=== PATIENT | male | born 1975 | race Caucasian/White ===

== ENCOUNTER 2018-04-13 09:07 | Emergency (ER) | payer BC ==
[2018-04-13 09:12] VITALS: BP 118/75; PULSE 70; RESP 20; TEMP 97.7
[2018-04-13] MEDS ORDERED: CLINDAMYCIN 150 MG/ML 6 ML VIAL IM STA (09:48)
--- NOTE | 2018-04-13 09:54 | ED ---
Extremity Problem HPI - General Chief complaint: Extremity Problem,Nontraumatic Stated complaint: Infection in elbow Time Seen by Provider: 04/13/18 09:14 Source: patient, RN notes reviewed, old records reviewed Mode of arrival: ambulatory Limitations: no limitations - History of Present Illness Initial comments: Patient is a 42-year-old male presents emergency Department with left elbow redness pain and swelling. Patient reports that it started on Monday. He reports that he has full range of motion of the elbow. He reports that today he noticed some skin changes and worsening erythema. Has had a history of MRSA. He is ALLERGIC to Keflex and Bactrim. Was sent here by [facility] because he cannot receive the IM injections of clindamycin there. He reports the clindamycin is only antibiotic that works well for him.. No fevers or chills. Again he reports full range of motion of the elbow and upper extremity. He's never seen an orthopedic physician. - Related Data Previous Rx's Medication Instructions Recorded Clindamycin [Cleocin] 450 mg PO Q6H 10 Days 04/13/18 Ibuprofen [Motrin] 600 mg PO Q8HR PRN #20 tab 04/13/18 methylPREDNISolone Dose Pack 4 mg PO DIRECTED #21 package 04/13/18 [Medrol Dose Pack] Allergies Allergy/AdvReac Type Severity Reaction Status Date / Time cephalexin [From Keflex] Allergy Unknown Verified 04/13/18 09:12 sulfamethoxazole Allergy Unknown Verified 04/13/18 09:12 [From Bactrim] trimethoprim [From Bactrim] Allergy Unknown Verified 04/13/18 09:12 Review of Systems ROS Statement: Those systems with pertinent positive or pertinent negative responses have been documented in the HPI. ROS Other: All systems not noted in ROS Statement are negative. Past Medical History Past Medical History: Hypertension History of Any Multi-Drug Resistant Organisms: None Reported Past Psychological History: No Psychological Hx Reported Smoking Status: Never smoker Past Alcohol Use History: Daily Past Drug Use History: None Reported General Exam - General Exam Comments Initial Comments: This is a 42-year-old male. Alert and oriented. No significant distress. Limitations: no limitations General appearance: alert, in no apparent distress Head exam: Present: atraumatic, normocephalic, normal inspection Eye exam: Present: normal appearance, PERRL, EOMI. Absent: scleral icterus, conjunctival injection, periorbital swelling ENT exam: Present: normal exam, mucous membranes moist Neck exam: Present: normal inspection. Absent: tenderness, meningismus, lymphadenopathy Respiratory exam: Present: normal lung sounds bilaterally. Absent: respiratory distress, wheezes, rales, rhonchi, stridor Cardiovascular Exam: Present: regular rate, normal rhythm, normal heart sounds. Absent: systolic murmur, diastolic murmur, rubs, gallop, clicks GI/Abdominal exam: Present: soft, normal bowel sounds. Absent: distended, tenderness, guarding, rebound, rigid Left Upper Arm exam: Present: normal inspection, full ROM Elbow exam: Present: full ROM, swelling (Patient has evidence of olecranon bursitis with erythema and surrounding erythema over the elbow measuring approximately 8-10 cm wide.), erythema, effusion. Absent: normal inspection, laceration, ecchymosis, deformity, pain w/ pronation/supination, tenderness over radial head, other Forearm Wrist exam: Present: normal inspection, full ROM, other (Evidence of eczema over the distal forearm.) Hand Wrist exam: Present: normal inspection, full ROM Vascular: Present: normal capillary refill Back exam: Present: normal inspection Neurological exam: Present: alert, oriented X3, CN II-XII intact Psychiatric exam: Present: normal affect, normal mood Skin exam: Present: warm, dry, intact, normal color. Absent: rash Course Vital Signs 04/13/18 09:10 Temperature 97.7 F Pulse Rate 70 Respiratory 20 Rate Blood Pressure 118/75 O2 Sat by Pulse 99 Oximetry - Reevaluation(s) Reevaluation #1: 04/13/18 09:46 I discussed doing an IV and possibility of needing an aspiration of the joint. Patient is refusing. He states he just wants the IM injections and wants to go home. We'll give him IM clindamycin and send him home with prescription. Discussed appropriate follow-up with orthopedic. Medical Decision Making - Medical Decision Making 42-year-old male present emergency department with left elbow pain and swelling. [facility] for IM injections of clindamycin as they did not have any. Patient has evidence of what appears to be a possibility of a septic bursitis. I offered the Patient IV fluids and orthopedic consult for drainage. He states he does not want to do this time. Only one time injections and medications and to leave. He's had this happen multiple times in the past over his ankle and foot, and believes he will heal well with clindamycin. He has full range of motion of the elbow and wrist and hand. He is alert and had x- [facility] today at [facility] and was told that they are normal. They discussed that I will give the Patient IM clindamycin. We'll discharge him with follow-up with orthopedic. I discussed strict return parameters. All questions answered return parameters were discussed. 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 If the area of redness or swelling worsens he needs return for further evaluation and possibility of IV antibiotics. Take medications as prescribed. Return to the emergency department if any alarming signs or symptoms occur. Prescriptions: Clindamycin [Cleocin] 450 mg PO Q6H 10 Days Ibuprofen [Motrin] 600 mg PO Q8HR PRN #20 tab PRN Reason: Pain methylPREDNISolone Dose Pack [Medrol Dose Pack] 4 mg PO DIRECTED #21 package Is patient prescribed a controlled substance at d/c from ED?: No When asked, does pt state using other controlled substances?: No If prescribed controlled substance>3 days was MAPS reviewed?: No If opioid is for acute pain is fill amount 7 days or less?: No If Rx opioid, was Start Talking consent form obtained?: No Referrals: Brady Riley MD [Primary Care Provider] - 1-2 days Marko Kendrick PAC [PHYSICIAN [facility]] - 1-2 days Time of Disposition: 09:50
== END 2018-04-13 10:53 | disposition home or self-care (01) ==
LOC: EC 09:07
DX: M70.22 Olecranon bursitis, left elbow (principal); L03.114 Cellulitis of left upper limb; Z88.1 Allergy status to other antibiotic agents; Z88.2 Allergy status to sulfonamides
CPT/HCPCS: 96372; 99283

== ENCOUNTER → 2018-08-15 | Outpatient (CLI) | payer BC ==
--- NOTE | 2018-08-15 11:03 | US ---
EXAMINATION TYPE: US venous doppler duplex LE LT DATE OF EXAM: 08/15/2018 10:45 AM COMPARISON: NONE CLINICAL HISTORY: M79.605 PAIN IN LT LEG. Left lower leg pain and edema SIDE PERFORMED: left TECHNIQUE: The lower extremity deep venous system is examined utilizing real time linear array sonog dexter with graded compression, doppler sonography and color-flow sonography. VESSELS IMAGED: External Iliac Vein (EIV) Common Femoral Vein Deep Femoral Vein Greater Saphenous Vein * Femoral Vein Popliteal Vein Small Saphenous Vein * Proximal Calf Veins (* superficial vessels) There is normal flow, compressibility, vascular waveforms. Left Leg: No evidence of DVT IMPRESSION: No evident deep venous arthrosis at or above the left knee, follow-up as indicated
[2018-08-15 11:41] LABS: Basophils % (A) 0 %; Eosinophils # (A) 0.3 k/uL (0-0.7); Eosinophils % (A) 4 %; HCT 47.2 % (39.0-53.0); HGB 15.4 gm/dL (13.0-17.5); Lymphocytes # (A) 1.4 k/uL (1.0-4.8); Lymphocytes % (A) 16 %; MCH 28.1 pg (25.0-35.0); MCHC 32.6 g/dL (31.0-37.0); MCV 86.2 fL (80.0-100.0); Mean Platelet Volume 7.7; Monocytes # (A) 0.7 k/uL (0-1.0); Monocytes % (A) 8 %; Neutrophils # (A) 6.1 k/uL (1.3-7.7); Neutrophils % (A) 71 %; Platelet Count 275 k/uL (150-450); RBC 5.48 m/uL (4.30-5.90); RDW 12.5 % (11.5-15.5); WBC 8.5 k/uL (3.8-10.6)
[2018-08-15 11:42] LABS: ALT 46 U/L (21-72); AST 38 U/L (17-59); Albumin 4.3 g/dL (3.5-5.0); Alkaline Phosphatase 61 U/L (38-126); Anion Gap 10 mmol/L; Blood Urea Nitrogen 14 mg/dL (9-20); Calcium 9.9 mg/dL (8.4-10.2); Carbon Dioxide 25 mmol/L (22-30); Chloride 105 mmol/L (98-107); Glucose 97 mg/dL (74-99); Potassium 5.3 mmol/L (3.5-5.1); Sodium 140 mmol/L (137-145); Total Protein 7.6 g/dL (6.3-8.2)
== END | disposition home or self-care (01) ==
LOC: RADUSWWP 10:03
PROVIDERS: ATTEND Family Medicine
DX: M79.605 Pain in left leg (principal); M25.50 Pain in unspecified joint; M25.472 Effusion, left ankle
CPT/HCPCS: 36415; 80053; 84550; 85025

== ENCOUNTER → 2019-08-20 | Outpatient (CLI) | payer BC ==
[2019-08-20 13:08] LABS: Basophils # (A) 0.1 k/uL (0-0.2); Basophils % (A) 1 %; Eosinophils # (A) 0.3 k/uL (0-0.7); Eosinophils % (A) 3 %; HCT 43.3 % (39.0-53.0); HGB 14.8 gm/dL (13.0-17.5); Lymphocytes # (A) 1.3 k/uL (1.0-4.8); Lymphocytes % (A) 12 %; MCH 29.3 pg (25.0-35.0); MCHC 34.3 g/dL (31.0-37.0); MCV 85.6 fL (80.0-100.0); Mean Platelet Volume 6.9; Monocytes % (A) 9 %; Neutrophils # (A) 8.3 k/uL (1.3-7.7); Neutrophils % (A) 74 %; Platelet Count 289 k/uL (150-450); RBC 5.06 m/uL (4.30-5.90); RDW 13.1 % (11.5-15.5); WBC 11.2 k/uL (3.8-10.6)
[2019-08-20 15:26] LABS: Appearance,BF Cloudy; Color,BF Yellow
[2019-08-20 16:03] LABS: Nucleated Cells, Body Fluid 62400 /uL; RBC, Body Fluid 400 /uL
[2019-08-20 16:05] LABS: Mononuclear WBC,Body Fluid 13 %; Polynuclear WBC,Body Fluid 87 %; Total Cells Counted,Body Fluid 100
[2019-08-20 20:02] LABS: C Reactive Protein 10.8 mg/dL (0.0-0.8); Uric Acid 8.5 mg/dL (3.7-8.7)
== END | disposition home or self-care (01) ==
LOC: LABWHC1 11:54
PROVIDERS: ATTEND Orthopaedic Surgery
DX: M25.562 Pain in left knee (principal); M25.462 Effusion, left knee
CPT/HCPCS: 36415; 84550; 85025; 86140; 87070; 87075; 87205; 89050; 89060

== ENCOUNTER 2019-08-23 12:20 | Day surgery (SDC) | payer BC ==
[2019-08-23 12:57] VITALS: RESP 16
[2019-08-23] MEDS ORDERED: LACTATED RINGERS 1,000 ML IV ONE ×3 (13:00→14:42)
[2019-08-23] MEDS: LIDOCAINE 1% 20 ML VIAL (10MG/ML) FOR IV START INTRADERMA ONE ×2 (13:01→13:44)
[2019-08-23 13:11] VITALS: BMI 27.4
[2019-08-23] MEDS ORDERED: ATENOLOL 50 MG TAB PO STA (13:21)
[2019-08-23] MEDS ORDERED: ONDANSETRON 4 MG/2 ML VIAL IVP ONE (13:35)
[2019-08-23] MEDS ORDERED: DEXAMETHASONE SOD PHOSPHATE 10 MG/ML 1 ML VIAL IV ONE (13:37)
[2019-08-23] MEDS ORDERED: MIDAZOLAM 2 MG/2 ML VIAL ONE (13:56)
[2019-08-23] MEDS ORDERED: KETOROLAC 30 MG/ML 1 ML VIAL ONE (13:56)
[2019-08-23] MEDS ORDERED: HYDROmorphone (PF) 1 MG/ML ONE (13:56)
[2019-08-23] MEDS ORDERED: LIDOCAINE 1% INJ 10MG/ML (20 ML MDV) ONE (13:56)
[2019-08-23] MEDS ORDERED: fentaNYL (PF) 50 MCG/ML 2 ML AMP ONE (13:56)
[2019-08-23] MEDS ORDERED: PROPOFOL 10 MG/ML 20 ML VIAL IV ONE (13:56)
[2019-08-23 15:30] VITALS: TEMP 97
--- NOTE | 2019-08-23 15:33 | P.OP ---
Date of Procedure: 08/23/19 Preoperative Diagnosis: Left knee acute crystalline arthropathy (acute gouty attack) Postoperative Diagnosis: Same Procedure(s) Performed: Left knee arthroscopic irrigation and debridement and extensive synovectomy Anesthesia: GIANLUCA Surgeon: Kee Cherry Director [employer]: Nikki Murphy Estimated Blood Loss (ml): 10 IV fluids (ml): 1,000 Pathology: other (Deep cultures were sent to [facility]) Condition: stable Disposition: PACU Indications for Procedure: The patient is a very pleasant previously healthy 43-year-old male who presented to my office this past Monday with an acute effusion to the left knee. He was previously seen by Dr. Shah who started him on indomethacin for presumptive gout. His knee was aspirated in my office and over 150 mL's of cloudy yellow fluid was drained. The fluid was sent for cultures, cell count, and crystal analysis. The crystal analysis came back consistent with gout and the white count was 65,000. We discussed the outcome of these studies and treatment options. He developed a recurrent effusion over the next 24 hours. He was seen in my office this morning with a large him a painful effusion. We discussed continued medical management and serial aspirations versus arthroscopic irrigation and debridement. The patient requested an arthroscopic irrigation and debridement of his knee. According to the patient's mom he has had multiple flareups and different joints in the past all consistent with gout. I long discussion with the patient on potential risks and complications of surgery including but not limited to risks from anesthesia, superficial infection, deep infection, damaged intra-articular structures, damage to local blood vessels or nerves, recurrence, worsening of his symptoms, need for further surgery, continued or worsened knee pain, and inability to regain preinjury level of function, and possibly loss of life or limb. The patient voiced his understanding of this and provided his verbal and written consent to go forward with surgery. Operative Findings: There was a large effusion immediately drained upon inserting the arthroscope into the anterolateral portal. The outflow from the knee was thick, cloudy yellow fluid. This fluid was swabbed and sent for cultures. There is diffuse inflamed synovium with a yellowish tint consistent with chronic gouty changes. There were also multiple white precipitate within the knee consistent with chronic gout. Description of Procedure: The patient is identified in preop holding and the correct left knee was marked with my initials. I reviewed the consent form with the patient and his mom. All her questions were answered. The patient was then brought back to the operating room by anesthesia. He was positioned on the OR table where general anesthetic and preoperative antibiotics were given. A tourniquet was applied proximal aspect of the left leg. A leg zheng was placed securing the left thigh to the table. A pillow was placed under the right leg. The foot of the bed was dropped. The left leg was then prepped and draped in the standard sterile fashion. Prior to starting surgery timeout was performed identifying the correct patient, operative extremity, and procedure. The patient's leg was then elevated, exsanguinated with an Esmarch bandage, and the tourniquet was inflated to 250 mmHg. Clinically the patient had a large tense effusion which made palpating the bony landmarks somewhat more difficult, but the superficial anatomy of the anterior knee was marked out and a standard anteromedial and anterolateral portal were drawn with a skin marker. Stab incision was made to the skin over the anterolateral portal and a blunt trocar and scope were inserted into the knee. The knee was extended and the arthroscope and trocar were driven up into the supra patellar pouch. The arthroscope was then inserted into the knee. There was a large cloudy effusion of the knee. The suprapatellar pouch had dense inflamed synovium with a yellowish tint. A valgus force was applied to the knee and the arthroscope was driven down the medial gutter and into the medial compartment. A spinal needle was then driven over the anteromedial portal marking and its position was verified intra-articularly using the scope. A stab incision was then made once the portal was found to be adequate. An arthroscopic shaver was then introduced in the anteromedial portal. The knee was extended in both the arthroscope and shaver were brought in to the suprapatellar pouch. I began by irrigating the knee with 3 L of sterile saline. The synovium had a yellowish tint and this was debrided back to pink bleeding tissue. There were large number of small Whitey precipitates which I tried to debride the majority of them. The arthroscope was then brought into the lateral compartment of the knee. There was dense inflamed synovium which was debrided. The anterior and middle horn of the lateral meniscus appeared to be intact but I was unable to see the posterior horn. The arthroscopic shaver was withdrawn a probe was inserted. Intercondylar notch was inspected. The medial compartment was then inspected and the medial meniscus appeared to be intact. The arthroscope and a shaver was then placed back in the infrapatellar pouch and an additional 6 L were irrigated through the knee. The fluid was turned off and the remaining fluid was aspirated out of the knee using suction. A 1/8 inch medium Hemovac drain was placed through the superolateral portal. All arthroscopic agreement was removed. The portals were closed with interrupted 3- 0 nylon. The drain was secured with a stitch. The tourniquet was let down. A sterile dressing consisting of Adaptic, 4 x 4, and web roll was applied followed by an Wesley wrap. I verified that all instrument, sponge, and sharp counts were correct. The patient was awoken from his anesthetic, transferred to a gurney, and brought to recovery room timeout procedure well. Plan: The patient is going to be discharged home as an outpatient. He is to remain weightbearing as tolerated on the operative leg. He'll be given a prescription for [place] for pain, and Medrol Dosepak, and an antibiotic due to his indwelling drain. He will leave his drain in place until Monday. We'll plan on seeing him in the office Monday for a dressing change and to remove the drain. His mom was instructed on drain maintenance including changing the drain every 8 hours or when it becomes fall.
[2019-08-23] MEDS: HYDROmorphone 1 MG/ML 1 ML SYRINGE IVP ONE ×2 (15:50→15:56)
[2019-08-23 16:57] VITALS: BP 137/82; PULSE 85
[2019-08-24] MEDS ORDERED: Pre Op ABX Message 1 EACH MISC MISCELLANE ONE (05:00)
== END 2019-08-23 17:16 | disposition home or self-care (01) ==
LOC: OR 12:20
PROVIDERS: ATTEND Orthopaedic Surgery
DX: M10.062 Idiopathic gout, left knee (principal); M65.862 Other synovitis and tenosynovitis, left lower leg; I10 Essential (primary) hypertension; E78.5 Hyperlipidemia, unspecified; L53.9 Erythematous condition, unspecified; J45.909 Unspecified asthma, uncomplicated; Z87.891 Personal history of nicotine dependence; Z88.1 Allergy status to other antibiotic agents; Z79.899 Other long term (current) drug therapy; Z79.82 Long term (current) use of aspirin; Z79.1 Long term (current) use of non-steroidal anti-inflammatories (NSAID); Z98.890 Other specified postprocedural states; Z87.2 Personal history of diseases of the skin and subcutaneous tissue
CPT/HCPCS: 29876; 87070; 87205; 87075; J2250; J1100; J2405; J2001; J3010; J1885; J1170; J2704